=== PATIENT | male | born 1985 | race Caucasian/White ===

== ENCOUNTER 2023-04-06 10:09 | Outpatient (RCR) | payer OTHER ==
[~2023-04-06 10:09] MED LIST: ATARAX25 MG PO; CEPHALEXIN500 M1 PO; NO HOME MEDICATIONS; PEPCID 20MG TAB20 MG PO; PREDNISONE20 MG PO
== END 2023-04-08 ==
LOC: WSOH
DX: T23.201D Burn of second degree of right hand, unspecified site, subsequent encounter (principal); Y99.0 Civilian activity done for income or pay; I10 Essential (primary) hypertension